=== PATIENT | female | born 1940 | race Caucasian/White ===

== ENCOUNTER → 2016-10-05 | Outpatient (CLI) | payer MEDICARE, BC, MEDICAID ==
[~2016-10-05] MED LIST: ACET-2723 PO; ALBU0.63 INH; AMIT10TA6 PO; ASCO500T9 PO; ASPI-557 PO; BENA20TA68 PO; FENO134C PO; FERR325C; FISH1CAP51; FOLI-40 PO; FURO40TA70 PO; HUM10VIA SQ; HYDR25TA85 PO; INSU100C14 SQ; ISOS60TA PO; LEVO125T71 PO; MULT-806 PO; OMEP-29 PO; POLY17PO6; POTA10CA32 PO; SIMV40TA2; TRAM50TA4 PO; ZOLP5TAB2 PO
== END ==
LOC: WC.BC 09:29
PROVIDERS: ATTEND Surgery
DX: R92.8 Other abnormal and inconclusive findings on diagnostic imaging of breast (principal); N64.59 Other signs and symptoms in breast; N63 Unspecified lump in breast; Z80.3 Family history of malignant neoplasm of breast
CPT/HCPCS: 76642; G0206; G0279